=== PATIENT | male | born 1960 | race Caucasian/White ===

== ENCOUNTER → 2016-11-01 | Outpatient (CLI) | payer BC ==
[~2016-11-01] MED LIST: ASCA500 PO; ASPI-113 PO; CLB200 PO; LRT5 PO; MULT-513 PO; OLME1TAB11 PO
[2016-11-01 12:03] LABS: ESTIMATED AVERAGE GLUCOSE 128 mg/dl; HA1C FLAG Normal (Normal)
[2016-11-01 12:09] LABS: BLOOD UREA NITROGEN 14 mg/dl (7-18); BUN/CREATININE RATIO 14.9 (10-20); CALCIUM 9.3 mg/dl (8.5-10.1); CARBON DIOXIDE 25 mmol/L (21-32); CHLORIDE 106 mmol/L (98-107); CHOLESTEROL 211 mg/dl (0-200); CREATININE 0.92 mg/dl (0.60-1.40); GLUCOSE 107 mg/dl (70-99); POTASSIUM 4.6 mmol/L (3.5-5.1); SODIUM 140 mmol/L (136-145); TRIGLYCERIDES 185 mg/dl (0-150); VERY LOW DENSITY LIPOPROT CALC 37 mg/dl
[2016-11-01 12:18] LABS: ALT/SGPT 31 U/L (12-78); AST/SGOT 17 U/L (15-37); CHOLESTEROL/HDL RATIO 4.5; HDL CHOLESTEROL 47 mg/dl; LDL CHOLESTEROL CALCULATED 127 mg/dl
== END | disposition home or self-care (01) ==
LOC: C.LAB1850 09:40
PROVIDERS: ATTEND Internal Medicine Cardiovascular Disease
DX: I10 Essential (primary) hypertension (principal); E78.00 Pure hypercholesterolemia, unspecified; R73.9 Hyperglycemia, unspecified

== ENCOUNTER → 2018-03-27 | Outpatient (CLI) | payer OTHER ==
[~2018-03-27] VITALS: Ht 180.3 cm; Wt 153.3 kg
[~2018-03-27] MED LIST changes: +BNC/20 PO; -OLME1TAB11 PO
[2018-03-27 16:23] VITALS: BP 144/95; PULSE 90; Ht 180.3 cm; Wt 153.3 kg
== END | disposition home or self-care (01) ==
LOC: C.NEUR 14:17
PROVIDERS: ATTEND Internal Medicine Pulmonary Disease
DX: G47.33 Obstructive sleep apnea (adult) (pediatric) (principal); E66.9 Obesity, unspecified